=== PATIENT | male | born 1990 | race Caucasian/White ===

== ENCOUNTER 2017-05-25 03:31 | Emergency (ER) | payer BC, OTHER ==
[2017-05-25 03:51] VITALS: BP 134/73
[2017-05-25] MEDS ORDERED: KETOROLAC TROMETHAMINE INJ/PF 30 MG/1 ML SDV IM ONE (04:07)
--- NOTE | 2017-05-25 04:09 | ER Document Report ---
ED Extremity Problem, Upper - General Chief Complaint: Shoulder Pain Stated Complaint: UPPER NECK AND RIGHT SHOULDER PAIN Time Seen by Provider: 05/25/17 03:56 - HPI Patient complains to provider of: Pain - right shoulder Onset: This evening Recent injury: No Where: Other - was helping his relatives remove trees from a relatives ayrd which is more strenuous then normal. he denies any direct trauma but admits to heavy lifting. Quality of pain: Achy - right shoulder and neck Severity of pain: Persistent, Still present Pain Level: 4 Context: denies: Animal bite, Blow, Burn, Crushed, Fall, Human bite, Incised, Insect bite, Tick bite Associated symptoms: Neck pain - right side into his shoulder. denies: None, Back pain, Chest pain/discomfort, Chills, Dizziness, Fainted, Fever, Hurts to breathe, Jaw pain, Nausea, Numbness, Seizure, Short of breath, Sweating, Tingling, Vomiting, Other Exacerbated by: Movement, Exertion Relieved by: Rest, Positioning Similar symptoms previously: No Recently seen / treated by doctor: No Notes: patient took mobic and baclofen prior to arrival denies numbness or tingling of distal extremity, full ROM of shoulder and neck with pain along the trapezius states he has been urinating without difficulty, denies dark urine, hematuria, flank pain Past Medical History - Social History Smoking Status: Unknown if Ever Smoked Family History: Reviewed & Not Pertinent Renal/ Medical History: Denies: Hx Peritoneal Dialysis Review of Systems - Review of Systems Constitutional: No symptoms reported Musculoskeletal: See HPI Neurological/Psychological: No symptoms reported -: Yes All other systems reviewed and negative Physical Exam - Vital signs Vitals: Temp Pulse Resp BP Pulse Ox 97.5 F 64 17 134/73 H 99 05/25/17 03:43 05/25/17 03:43 05/25/17 03:43 05/25/17 03:43 05/25/17 03:43 - General General appearance: Appears well, Alert In distress: None - Cardiovascular Pulses: Normal: Radial Normal capillary refill: Yes - Back Back: Normal, Nontender. No: Tender, Deformity/step-off, CVA tenderness, Vertebra tenderness, Scars, Scoliosis, Wounds, Other - Extremities General upper extremity: Normal inspection, Tender - along trapezius, Normal color, Normal ROM, Normal strength, Normal temperature. No: Edema Shoulder: Normal, Nontender. No: Tender, Abrasion, Deformity, Dislocation, Ecchymosis, Instability, Laceration, Limited ROM Arm: Normal, Nontender Elbow: Normal, Nontender - Neurological Motor strength normal: LUE, RUE Additional motor exam normals: Equal professional healthcare representative. No: Weakness Sensory: Normal - Skin Skin Temperature: Warm Skin Moisture: Dry Skin Color: Normal Skin Turgor: Elastic Course - Re-evaluation Re-evalutation: 05/25/17 07:14 Patient is a 27-year-old male who is hemodynamically stable, no acute distress and afebrile. Presentation and physical exam with low clinical suspicion of any fracture, dislocation. Extremities neurovascularly intact. No evidence of a septic joint, gout flare, dislocation, or fracture on exam and imaging. Vitals wnl. Patient offered a sling for comfort. At this time, I do not see an indication for labs or further imaging. Will discharge with conservative measures, return precautions, and follow-up recommendations. - Vital Signs Vital signs: Temp Pulse Resp BP Pulse Ox 97.5 F 64 17 134/73 H 99 05/25/17 03:43 05/25/17 03:43 05/25/17 03:43 05/25/17 03:43 05/25/17 03:43 Discharge - Discharge Clinical Impression: Shoulder pain Qualifiers: Chronicity: acute Laterality: right Qualified Code(s): M25.511 - Pain in right shoulder Condition: Good Disposition: HOME, SELF-CARE Instructions: Muscle Strain ([facility]), Temporary Sling ([facility]) Additional Instructions: hydrate! hydrate! hydrate! Be sure to drink plenty of water Please return if you are urinating less than twice a day and becomes darker in color (iced tea) with associated back pain, fevers
== END 2017-05-25 04:59 | disposition home or self-care (01) ==
LOC: ER 03:31
DX: M25.511 Pain in right shoulder (principal); M54.2 Cervicalgia
CPT/HCPCS: 99283; 96372; J1885

== ENCOUNTER → 2020-09-10 | Outpatient (CLI) | payer OTHER ==
--- NOTE | 2020-09-10 09:58 | DRAGON STRESS TEST REPORT ---
Exercise stress test Date: September 10, 2020 Referring physician: Ange Shukla PA-C Performing physician: lAex Suarez MD Indication: Chest pain Clinical history 30-year-old male with no significant prior medical history who complained of midsternal chest pain. Family history is noted to be positive for premature coronary artery disease. Based on this exercise stress test is requested. Procedure The patient presented to the stress lab. The initial EKG showed sinus rhythm at 72 bpm with RSR prime in V1. QTC was 394 ms. The patient exercised on the treadmill according to [place] protocol for a total of 11 minutes and 8 seconds achieving a maximum heart rate of 184 bpm which was 97 % of maximum predicted of 189 bpm. The maximum workload was 13.4 METS. The presenting EKG showed sinus rhythm at 72 bpm. The initial blood pressure was 119/75 mmHg. Upon exercise the heart rate mil[place] to a maximum of 184 beats per minute and the blood pressure [place] to a maximum of 170/51 mmHg. The patient had appropriate increment in heart rate and blood pressure with exercise. The exercise EKG was negative for myocardial ischemia. The recovery EKG did not reveal any evidence of myocardial ischemia. The patient tolerated the exercise well and did not report chest pain or dyspnea. The test was terminated on account of patient having achieved target heart rate. The patient's EKG and vital signs were monitored throughout the procedure. Conclusion The exercise EKG is negative for myocardial ischemia. Excellent exercise tolerance. Normal heart rate and blood pressure response to exercise. MTDD
== END ==
LOC: RAD 08:47
PROVIDERS: ATTEND Physician Assistant
DX: R07.9 Chest pain, unspecified (principal); Z82.49 Family history of ischemic heart disease and other diseases of the circulatory system
CPT/HCPCS: 93017